=== PATIENT | male | born 1935 | race Caucasian/White ===

== ENCOUNTER 2016-06-24 10:14 | Inpatient (IN) | payer MEDICARE ==
[2016-06-24] MEDS ORDERED: niCARdipine 0.1MG/ML IVPREMIX* 20 MG/200 ML BAG ONE (10:31)
--- NOTE | 2016-06-24 10:35 | RAD ---
HISTORY: Neurological changes COMPARISONS: None TECHNIQUE: Multiple contiguous axial CT scans were obtained of the head without intravenous contrast. FINDINGS: HEMORRHAGE/INFARCT: There is a 3.4 cm hemorrhage of the right thalamus with intraventricular extension. Elsewhere, there is no parenchymal hemorrhage or acute infarct. MASSES/SHIFT: There is minimal subfalcine shift to the left of approximately 0.3 cm. EXTRA-AXIAL SPACES: There are no extra-axial fluid collections. SULCI AND VENTRICLES: There is intraventricular extension of hemorrhage into the lateral, third, and fourth ventricles. There is mild ventriculomegaly CEREBRUM: As noted above, there is a 3.4 cm hemorrhage of the right thalamus. There is hypoattenuation of the periventricular and subcortical white matter BRAINSTEM: There are no focal parenchymal abnormalities. CEREBELLUM: There are no focal parenchymal abnormalities. VESSELS: The vessels are grossly normal. PARANASAL SINUSES: The paranasal sinuses are clear. ORBITS: The orbits are unremarkable. BONES AND SOFT TISSUE: No bone or soft tissue abnormalities are noted. OTHER: None IMPRESSION: 3.4 CM HEMORRHAGE OF THE RIGHT THALAMUS WITH INTRAVENTRICULAR EXTENSION AND MILD VENTRICULOMEGALY SUGGESTIVE OF EARLY HYDROCEPHALUS. PRELIMINARY FINDINGS WERE DISCUSSED WITH DR. CHONG IN THE EMERGENCY DEPARTMENT AT APPROXIMATELY 10:30 AM ON JUNE 24, 2016.
[2016-06-24 10:41] LABS: Hematocrit 45 % (42-52); Hemoglobin 14.9 g/dl (14.0-18.0); Mean Corpuscular HGB Conc 33 g/dl (31-36); Mean Corpuscular Hemoglobin 30 pg (27-31); Mean Corpuscular Volume 90 fL (80-94); Mean Platelet Volume 8 um3 (7.4-10.4); Red Blood Count 5.04 10^6/ul (4.0-5.4); Red Cell Distribution Width 15 % (10.5-15); White Blood Count 7.8 10^3/ul (3.5-10.8)
[2016-06-24 10:52] LABS: BUN/Creatinine Ratio 16.5 (8-20); EGFR African American 78.3 (>60); EGFR Non-African American 60.9 (>60); Globulin 3.1 g/dL (2-4); Total Bilirubin 0.6 mg/dL (0.2-1.0); Total Protein 7.1 g/dL (6.4-8.9)
[2016-06-24 10:54] LABS: Troponin I 0.01 ng/mL (<0.04)
[2016-06-24 10:56] LABS: Urine Bacteria Absent (Absent); Urine Bilirubin Negative (Negative); Urine Glucose Negative (Negative); Urine Nitrite Negative (Negative)
--- NOTE | 2016-06-24 11:47 | RAD ---
INDICATION: Altered mental status COMPARISON: Chest x-ray October 10, 2003 TECHNIQUE: An AP portable view obtained at 1120 hours is submitted. FINDINGS: Bones/Soft Tissues: There are no acute bony findings. Cardiomediastinal: The cardiomediastinal silhouette is normal. Lungs: There are no infiltrates. Pleura: There are no pleural effusions. Other: None IMPRESSION: NO ACTIVE DISEASE.
[2016-06-24] MEDS ORDERED: Acetaminophen SUPP* 650 MG SUPP PR PRN (12:00)
[2016-06-24] MEDS ORDERED: LORazepam INJ* 2 MG/ML 1 ML VIAL IV PUSH PRN ×2 (12:00→16:20)
[2016-06-24] MEDS ORDERED: Ondansetron INJ* 2 MG/ML VIAL IV PRN (12:00)
[2016-06-24] MEDS ORDERED: Morphine INJ* 2 MG/ML 1 ML SYRINGE IV PRN (12:00)
[2016-06-24] MEDS ORDERED: Atropine 1% (ORAL/SL)* 15 ML BTL SL PRN (12:00)
[2016-06-24] MEDS ORDERED: Diltiazem IV VIAL* 125 MG in D5W 100 ML BAG* 100 ML IV ONE (12:24)
[2016-06-24] MEDS ORDERED: niCARdipine 0.1MG/ML IVPREMIX* 20 MG/200 ML BAG IV SCH (13:00)
[2016-06-24] MEDS ORDERED: Morphine INJ* 2 MG/ML 1 ML SYRINGE IV ONE (14:17)
[2016-06-24] MEDS ORDERED: Morphine PCA ADULT* 5 MG/ML 30 ML PCA SCH (15:00)
[2016-06-24 16:28] VITALS: BP 223/87
[2016-06-24] MEDS ORDERED: LORazepam INJ* 2 MG/ML 1 ML VIAL ONE (16:28)
--- NOTE | 2016-06-24 22:29 | HP ---
HISTORY AND PHYSICAL: DATE OF ADMISSION: 06/24/16 PRIMARY CARE PROVIDER: Dr. Botello. CONSULTING NEUROSURGEON: Dr. Cortez. ATTENDING PHYSICIAN: Dr. Grace * (dictated by HALIMA Montgomery) CHIEF COMPLAINT: Altered mental status. HISTORY OF PRESENT ILLNESS: Mr. Patten is an 80-year-old male patient who carries a history of hypertension to my knowledge and the family is not present at the bedside when I first evaluated him, but he comes in today. According to notes, the had stated that the patient had an episode where he was standing and then all of a sudden he went down. She immediately apparently called 911. According to records, the patient carries a history of hypertension and he is on losartan for this. He also takes aspirin, came into the ER, he was minimally responsive. CT of the brain was obtained and showed a large intracranial hemorrhage and was evaluated by Neurosurgery who felt that surgery at this point was contraindicated because of the severity of the bleed and family ultimately felt that they would not want that because he would be left with severe neurological deficits and that would not be in his wishes, so at that point the hospitalist service was asked to evaluate for admission. According to the family, there has been no recent reports of fevers, chills, abdominal pain or any nausea or vomiting and he has been taking his meds as prescribed according to the family. PAST MEDICAL HISTORY: Significant for hypertension. History of prostate cancer. PAST SURGICAL HISTORY: Denied. HOME MEDICATIONS: According to the list that we were able to obtain include: 1. Lidex 0.05% topically t.i.d. 2. Nitro 0.4 mg sublingual q.5 minutes x3 for chest pain. 3. Cozaar 25 mg daily. 4. Aspirin 81 mg daily. ALLERGIES TO MEDICATIONS: No known drug allergies. FAMILY HISTORY: Reviewed and essentially noncontributory. SOCIAL HISTORY: The patient resides with his who is also his surrogate decision maker. There was no reports of alcohol use or smoking. REVIEW OF SYSTEMS: Unable to be obtained. PHYSICAL EXAMINATION GENERAL: At this time, Mr. Patten is an 80-year-old male patient who is sitting in the ER stretcher. He does not appear to be in any acute distress. He is minimally responsive. VITAL SIGNS: Revealed initially a blood pressure 238/90, pulse of 64, respirations 14, O2 sat 98%, temperature 96.7. Blood pressure now is 163/71. HEENT: Head: Atraumatic. Eyes: Pupils react to light. Sclerae anicteric. Throat: Oral mucosa appears to be moist. No oropharyngeal erythema. NECK: Supple. LUNGS: Clear to auscultation. No wheezes, rales or rhonchi. HEART: Sounds S1, S2. Regular rate and rhythm. No murmurs, rubs or gallops. ABDOMEN: Soft, flat, nontender. Bowel sounds are present. EXTREMITIES: Pulses 2+ throughout. He is unable to move the left side. He does withdraw the lower extremities to pain. NEUROLOGIC: The patient is not alert. He is essentially stuporous. He is unable to follow commands at this point, he will moan to pain only. He does withdraw his right upper and right lower extremity. He will not withdraw the left lower. Corneal reflexes are intact. He will not withdraw the left upper extremity, he has a dense hemiplegia. He does have a gaze to the right. He does not respond to the visual threat on the left side and he does have a gag reflex intact. SKIN: Intact. DIAGNOSTIC STUDIES/LABORATORY DATA: The labs today reveal WBC of 7.8, RBC of 5.04, hemoglobin of 14.3, hematocrit of 45, platelet count was 204. The INR was 0.98. PTT of 30.5. Sodium 136, potassium 4.0, chloride of 105, bicarb 24, BUN 19, creatinine 1.15, glucose 148, lactic 1.4, calcium 9.0. Total bili 0.6, AST 24, ALT 17, alk phos of 58, troponin is 0.01, albumin of 4.0. Urine was obtained, it was negative. He did have a chest x-ray obtained today, showed no active disease. He had a brain CT which showed a 3.4 cm hemorrhage in the right thalamus with intraventricular extension and mild ventriculomegaly suggestive of early hydrocephalus. Preliminary findings were discussed with Dr. Ramos. There was an EKG obtained today as well which showed a normal sinus rhythm with a rate of 64. No ST elevations or T wave inversions. Old medical records reviewed. ASSESSMENT AND PLAN: Mr. Patten is an 80-year-old male patient that came to the ER today with complaints of altered mental status. He fell and became unresponsive and now found to have large intracranial hemorrhage. He will be admitted under inpatient status: 1. Intracranial hemorrhage. This is probably related to hypertension given the acute onset of bleed in the location. Dr. Cortez evaluated with the family , discussed surgical options and at this point the family's discretion was that they would like shift to comfort as their father and would not want to have significant neurological deficits and his chances of survival from this acute incidents were quite low and the family discussed the options with Dr. Cortez and surgical options were not pursued, so the hospitalist service was asked to evaluate. I did discuss this with the family, the options of maintaining blood pressure, trying to put him on Mannitol and hypertonic saline , but I did discuss with them that he would have significant neurological deficits and that he most likely wanted to be independent and be able to return to his previous activities of life and to his previous functional status. At that point, the family felt that he would not want this and that he would want to be kept comfortable, so at this point I am going to go ahead and stop by the draws, will stop the Cardene. We will keep him comfortable with morphine and __ ____. In addition to this, we will also put him on sublingual atropine for secretions. We will stop the Cardene drip. I will transfer him to the fourth floor and I will consult with the meter repairer was well and I did discuss this with my attending, Dr. Grace, who is in agreement. 2. Hypertension. Again, we are sticking to comfort measures only. 3. DVT prophylaxis. He will be on comfort measures only. 4. Code status. He is a DNR/DNI. TIME SPENT: On the admission which is critical care time which was approximately 70 minutes; greater than half the time spent [id number] with the patient, other half time spent [id number] with the family going over the plan of care. [place] NP CC: Dr. Botello* [id number]/[facility] #: [id number] MTDYohannes
--- NOTE | 2016-06-26 00:51 | DS ---
SUMMARY: DATE OF ADMISSION: 06/24/16 DATE OF : 06/25/16 SUPERVISING PHYSICIAN: Valentine Jerome MD *(dictated by HALIMA Renee) PRIMARY CAUSE OF : 1. Cardiopulmonary arrest secondary to intracranial hemorrhage. 2. Hypertensive emergency. SECONDARY DIAGNOSIS: Remote history of prostate cancer - noncontributory to his . HOSPITAL IMAGIN. CT of the brain 06/24/16 demonstrates a 3.4 cm hemorrhage of the right thalamus with an intraventricular extension and mild ventriculomegaly suggestive of early hydrocephalus. 2. Chest x-ray 06/24/16 shows no acute process. 3. EKG 06/24/16 shows sinus rhythm without ischemic changes. HOSPITAL COURSE: This was an 80-year-old gentleman with hypertension and a remote history of prostate cancer who was brought to the emergency department by EMS after collapsing at home. His provided the majority of the history and states that he was simply standing and suddenly fell to the floor and was minimally responsive. The patient was immediately taken to CT when he reached the emergency department, which demonstrated a large intracranial hemorrhage in the right thalamus. Neurosurgeon, Dr. Cortez, was consulted and evaluated the patient who suggested that based on the location and sites of the bleed, would not improve outcome measures significantly and patient would likely have significant neurologic deficits if he was able to survive surgery and sequelae postoperatively. Based on this information, the patient's family elected for comfort care measures only. Also of note, the patient was severely hypertensive when reached the emergency department and his initial blood pressures were 238/90 mmHg. The patient was initially started on a nicardipine drip with some positive response and achieved some blood pressure control within several minutes of initiating the drip. The patient was subsequently admitted to the hospital with comfort care measures. The patient remained unresponsive and passed in the presence of family at approximately 0430 hours this morning 06/25/16. This case was referred to the hand tennis ball coverer, Dr. Harden, due to within 24 hours of admission who subsequently released the patient's [place] [facility] The patient's family does not request autopsy. HALIMA RENEE CC: PCP, Khari Botello MD* [id number]/[facility] #: [id number] [facility]ALTH[facility]ann[facility]
== END 2016-06-25 04:30 | disposition expired | DRG 66 ==
LOC: ED 10:14 → MED 11:58
PROVIDERS: ADMIT Internal Medicine; ATTEND Internal Medicine
DX: I61.8 Other nontraumatic intracerebral hemorrhage (principal); I46.8 Cardiac arrest due to other underlying condition; I10 Essential (primary) hypertension; Z85.46 Personal history of malignant neoplasm of prostate; Z79.82 Long term (current) use of aspirin; Z79.899 Other long term (current) drug therapy
CPT/HCPCS: 36415; 70450; 71010; 80053; 80061; 81003; 81015; 83605; 84484; 85025; 85610; 85730; 86850; 86900; 86901; 87086; 93005; J2060; J2270